=== PATIENT | female | born 1970 | race Asian ===

== ENCOUNTER 2016-11-23 23:01 | Emergency (ER) | payer OTHER ==
[~2016-11-23] VITALS: Ht 152.4 cm; Wt 98.0 kg
[~2016-11-23 23:01] MED LIST: ACETAZOLAMID250 MG OR; ALPR0.5T24 PO; AMOX500C85 PO; BENICAR20 MG PO; CLARITIN10 M1 PO; DUREZOL0.05 % OP; FLUC150T PO; FLUT0.05 NAS; FURO20TA67 PO; IBUP800T30 PO; INSU100I2 SC; INSU100P SC; INSUINJ47 SC; JANUVIA100 MG PO; LATANOPROST0.005 %; LORTAB1 TA1 PO; NEVANAC 0.1% OP; ONGLYZA5 MG PO; PREDNISONE5 M1 OR; PROM25TA52 PO; ROSU10TA PO; VIGAMOX0.5 % OP; Z-PAK PO; ZANTAC300 MG PO
[2016-11-23 23:49] LABS: PLATELET COUNT 305 K/uL (152-353)
[2016-11-23 23:52] LABS: POTASSIUM 3.7 mmol/L (3.6-5.2)
[2016-11-24 00:37] VITALS: BP 107/56; TEMP 97.8
== END 2016-11-24 00:39 | disposition home or self-care (01) ==
LOC: ED 23:01
DX: B34.9 Viral infection, unspecified (principal); E11.9 Type 2 diabetes mellitus without complications
CPT/HCPCS: 36415; 80053; 81000; 83036; 85027; 87081; 87804; 87880; 99283

== ENCOUNTER 2018-05-30 06:31 | Outpatient (CLI) | payer OTHER ==
[2018-05-30 07:43] LABS: PLATELET COUNT 267 K/uL (152-353)
[2018-05-30 08:02] LABS: POTASSIUM 4.1 mmol/L (3.6-5.2)
== END 2018-05-30 19:10 | disposition home or self-care (01) ==
LOC: LABW 06:31
PROVIDERS: Internal Medicine
DX: E11.9 Type 2 diabetes mellitus without complications (principal)
CPT/HCPCS: 36415; 80053; 80061; 81000; 82043; 82570; 83036; 84439; 84443; 85027

== ENCOUNTER 2018-07-02 11:27 | Outpatient (CLI) | payer OTHER | END 2018-07-02 23:31 | disposition home or self-care (01) | LOC: MAMMO 11:27 | DX: Z12.31 Encounter for screening mammogram for malignant neoplasm of breast (principal) ==

== ENCOUNTER 2018-08-02 16:39 | Emergency (ER) | payer OTHER ==
[~2018-08-02] VITALS: Ht 152.4 cm; Wt 101.2 kg
[2018-08-02 18:12] LABS: PLATELET COUNT 252 K/uL (152-353)
[2018-08-02 18:35] LABS: POTASSIUM 3.9 mmol/L (3.6-5.2); SODIUM 141 mmol/L (136-145)
[2018-08-02 19:55] VITALS: BP 123/76; TEMP 98.3
== END 2018-08-02 19:56 | disposition home or self-care (01) ==
LOC: ED 16:39
DX: R07.89 Other chest pain (principal); I45.19 Other right bundle-branch block; R06.02 Shortness of breath
CPT/HCPCS: 36415; 80053; 82550; 82553; 83880; 84484; 85027; 93005; 99283

== ENCOUNTER 2019-05-15 06:31 | Outpatient (CLI) | payer OTHER ==
[2019-05-15 06:55] LABS: PLATELET COUNT 300 K/uL (152-353)
== END 2019-05-15 23:01 | disposition home or self-care (01) ==
LOC: LABW 06:31
PROVIDERS: Physician Assistant
DX: E11.9 Type 2 diabetes mellitus without complications (principal); E78.00 Pure hypercholesterolemia, unspecified; I10 Essential (primary) hypertension
CPT/HCPCS: 36415; 80053; 80061; 82306; 83036; 84443; 85027

== ENCOUNTER 2019-05-20 08:18 | Outpatient (CLI) | payer OTHER | END 2019-05-20 22:24 | disposition home or self-care (01) | LOC: US 08:18 | DX: E11.9 Type 2 diabetes mellitus without complications (principal) ==

== ENCOUNTER 2019-07-05 01:04 | Emergency (ER) | payer OTHER ==
[~2019-07-05] VITALS: Ht 152.4 cm; Wt 96.2 kg
[2019-07-05 01:50] VITALS: BP 117/69; TEMP 98.3
== END 2019-07-05 01:55 | disposition home or self-care (01) ==
LOC: ED 01:04
DX: T63.461A Toxic effect of venom of wasps, accidental (unintentional), initial encounter (principal); M79.622 Pain in left upper arm; Y92.89 Other specified places as the place of occurrence of the external cause
CPT/HCPCS: 99282

== ENCOUNTER 2019-12-20 06:06 | Outpatient (CLI) | payer OTHER ==
[2019-12-20 06:42] LABS: PLATELET COUNT 253 K/uL (152-353)
[2019-12-20 07:00] LABS: POTASSIUM 3.9 mmol/L (3.6-5.2)
== END 2019-12-20 19:35 | disposition home or self-care (01) ==
LOC: LABW 06:06
PROVIDERS: Internal Medicine
DX: E11.9 Type 2 diabetes mellitus without complications (principal)
CPT/HCPCS: 36415; 80053; 80061; 81000; 83036; 84439; 84443; 85027

== ENCOUNTER 2020-08-03 04:51 | Outpatient (CLI) | payer OTHER ==
[2020-08-03 05:33] LABS: PLATELET COUNT 247 K/uL (152-353)
[2020-08-03 06:02] LABS: POTASSIUM 3.9 mmol/L (3.6-5.2)
== END 2020-08-04 00:18 | disposition home or self-care (01) ==
LOC: LAB 04:51
PROVIDERS: Internal Medicine
DX: Z00.00 Encounter for general adult medical examination without abnormal findings (principal); Z13.820 Encounter for screening for osteoporosis; Z79.899 Other long term (current) drug therapy
CPT/HCPCS: 36415; 80053; 80061; 81000; 82306; 84439; 84443; 85027

== ENCOUNTER 2020-08-28 08:42 | Outpatient (CLI) | payer OTHER | END 2020-08-28 21:53 | disposition home or self-care (01) | LOC: LABW 08:42 | DX: E11.9 Type 2 diabetes mellitus without complications (principal) | CPT/HCPCS: 36415; 83036 ==

== ENCOUNTER 2020-09-13 12:20 | Inpatient (IN) | payer OTHER ==
[2020-09-13] VITALS (14 sets, daily range): BP systolic 85–150; BP diastolic 40–67; TEMP 98.6–103.1; Ht 154.9 cm; Wt 104.9 kg
[~2020-09-13] VITALS: Ht 154.9 cm; Wt 104.9 kg
[2020-09-13 13:34] LABS: PLATELET COUNT 215 K/uL (152-353)
[2020-09-13 13:48] LABS: POTASSIUM 3.5 mmol/L (3.6-5.2)
[2020-09-13] MEDS ORDERED: RHOPRESSA 0.02% OPTH (18:16)
[2020-09-13] MEDS ORDERED: VYZULTA0.024 % OPTH (18:18)
[2020-09-13] MEDS ORDERED: DORZOLAMIDE HYD1 SOL OPTH (18:25)
[2020-09-14] VITALS (7 sets, daily range): BP systolic 94–141; BP diastolic 49–64; TEMP 98.5–102.1
[2020-09-14 04:46] LABS: PLATELET COUNT 189 K/uL (152-353)
[2020-09-15 03:57] VITALS: BP 90/49; TEMP 99.3
[2020-09-15 05:16] LABS: PLATELET COUNT 209 K/uL (152-353)
[2020-09-15 05:20] LABS: POTASSIUM 3.1 mmol/L (3.6-5.2)
[2020-09-15 08:00] VITALS: BP 123/67; TEMP 98.7
[2020-09-15 12:00] VITALS: BP 123/67; TEMP 98.7
[2020-09-15 16:00] VITALS: BP 131/73; TEMP 99.4
[2020-09-15 20:00] VITALS: BP 134/72; TEMP 98.5
[2020-09-16] VITALS: BP 138/82; TEMP 98.5
[2020-09-16 04:00] VITALS: BP 152/78; TEMP 98.5
[2020-09-16 05:03] LABS: POTASSIUM 4.2 mmol/L (3.6-5.2)
[2020-09-16 05:23] LABS: PLATELET COUNT 181 K/uL (152-353)
[2020-09-16 08:00] VITALS: BP 140/81; TEMP 98.5
[2020-09-16] MEDS ORDERED: CEFDINIR300 MG PO (10:25)
[2020-09-16 12:00] VITALS: BP 124/66; TEMP 98.1
[2020-09-16 16:00] VITALS: BP 158/85; TEMP 98.9
== END 2020-09-16 17:30 | disposition home or self-care (01) | DRG 872 ==
LOC: ED 12:20 → MED/SURG 15:00
PROVIDERS: Emergency Medicine Emergency Medical Services; ADMIT Internal Medicine Endocrinology, Diabetes & Metabolism; ATTEND Internal Medicine Endocrinology, Diabetes & Metabolism
DX: A41.89 Other specified sepsis (principal); N10 Acute pyelonephritis; E11.9 Type 2 diabetes mellitus without complications; I10 Essential (primary) hypertension; E78.49 Other hyperlipidemia; K21.9 Gastro-esophageal reflux disease without esophagitis; G89.4 Chronic pain syndrome; F41.8 Other specified anxiety disorders; B96.20 Unspecified Escherichia coli [E. coli] as the cause of diseases classified elsewhere
CPT/HCPCS: 36415; 80048; 80053; 81000; 82150; 82948; 82962; 83605; 83690; 85027; 87040; 87086; 87088; 93005; 96360; 96361; 96365; 96366; 96367; 96372; 96374; 96375; 99284; J0696; J1650; J1815; J1956; J2270; J2405

== ENCOUNTER 2020-12-15 09:57 | Outpatient (CLI) | payer OTHER ==
[~2020-12-15 09:57] MED LIST changes: +CEFDINIR300 MG PO; +DORZOLAMIDE HYD1 SOL OPTH; +RHOPRESSA 0.02% OPTH; +VYZULTA0.024 % OPTH
== END 2020-12-15 21:44 | disposition home or self-care (01) ==
LOC: RESP 09:57
PROVIDERS: ATTEND Nurse Practitioner
DX: R60.0 Localized edema (principal)

== ENCOUNTER 2021-03-02 10:59 | Day surgery (SDC) | payer OTHER ==
[2021-02-25 10:43] LABS: PLATELET COUNT 282 K/uL (152-353)
[2021-02-25 11:01] LABS: POTASSIUM 4.5 mmol/L (3.6-5.2)
[~2021-03-02] VITALS: Ht 33 cm; Wt 0.5 kg
== END 2021-03-02 14:15 | disposition home or self-care (01) ==
LOC: OR 10:59
PROVIDERS: ATTEND Internal Medicine Gastroenterology
PROC: 0DB68ZZ Excision of Stomach, Via Natural or Artificial Opening Endoscopic (ICD-10-PCS; principal; 2021-03-02)
PROC: 0DB88ZZ Excision of Small Intestine, Via Natural or Artificial Opening Endoscopic (ICD-10-PCS; 2021-03-02)
PROC: 0D738ZZ Dilation of Lower Esophagus, Via Natural or Artificial Opening Endoscopic (ICD-10-PCS; 2021-03-02)
DX: K21.00 Gastro-esophageal reflux disease with esophagitis, without bleeding (principal); K22.2 Esophageal obstruction; K29.50 Unspecified chronic gastritis without bleeding; R13.19 Other dysphagia; R10.11 Right upper quadrant pain; R11.0 Nausea; Z20.822 Contact with and (suspected) exposure to COVID-19
CPT/HCPCS: 80053; 85027; 87635; J2704; U0003

== ENCOUNTER 2022-04-08 19:40 | Emergency (ER) | payer OTHER ==
[~2022-04-08] VITALS: Ht 177.8 cm; Wt 99.3 kg
[2022-04-08 21:14] VITALS: BP 125/72; TEMP 98.3
== END 2022-04-08 21:14 | disposition home or self-care (01) ==
LOC: ED 19:40
DX: R21 Rash and other nonspecific skin eruption (principal); E11.9 Type 2 diabetes mellitus without complications; Z79.4 Long term (current) use of insulin
CPT/HCPCS: 99282

== ENCOUNTER 2022-07-12 23:17 | Observation (INO) | payer OTHER ==
[~2022-07-12] VITALS: Ht 157.5 cm; Wt 104.3 kg
[~2022-07-12 23:17] MED LIST changes: +FLONASE AL50 MCG/ACT NAS; -FLUT0.05 NAS
[2022-07-12 23:30] VITALS: BP 105/55
[2022-07-13] VITALS (8 sets, daily range): BP systolic 95–124; BP diastolic 45–75; TEMP 97.8–98.2; Ht 157.5 cm; Wt 104.3 kg
[2022-07-13 00:55] LABS: PLATELET COUNT 265 K/uL (152-353)
[2022-07-13 01:04] LABS: POTASSIUM 3.1 mmol/L (3.6-5.2)
[2022-07-13] MEDS ORDERED: XYZAL ALLERGY 245 MG PO (09:56)
[2022-07-13] MEDS ORDERED: LISI10TA11 PO (10:13)
[2022-07-13] MEDS ORDERED: FAMO20TA4 PO (10:14)
[2022-07-13] MEDS ORDERED: ALBUTEROL108 MCG/AC INH (10:15)
[2022-07-13] MEDS ORDERED: HYDROCHLOROT50 MG PO (10:16)
[2022-07-14] VITALS: BP 115/53; TEMP 98.5
[2022-07-14 00:02] VITALS: BP 115/53; TEMP 98.5
[2022-07-14 04:00] VITALS: BP 104/42; TEMP 98.6
[2022-07-14 08:00] VITALS: BP 111/62; TEMP 98.5
[2022-07-14 12:30] VITALS: BP 107/67; TEMP 98.6
== END 2022-07-14 12:55 | disposition home or self-care (01) ==
LOC: ED 23:17 → MED/SURG 07-13 02:45
PROVIDERS: ADMIT Emergency Medicine Emergency Medical Services; ATTEND Internal Medicine
DX: E11.65 Type 2 diabetes mellitus with hyperglycemia (principal); K76.0 Fatty (change of) liver, not elsewhere classified; I10 Essential (primary) hypertension; R10.10 Upper abdominal pain, unspecified; E78.49 Other hyperlipidemia; K21.9 Gastro-esophageal reflux disease without esophagitis; M15.8 Other polyosteoarthritis; H54.8 Legal blindness, as defined in USA
CPT/HCPCS: 80053; 81002; 82150; 82948; 83605; 83690; 85027; 87040; 87635; 96360; 96361; 96365; 96374; 96375; 96376; 99220; 99284; G0378; J1885; J2270; J2405; J3490; U0003

== ENCOUNTER 2022-08-21 08:01 | Outpatient (CLI) | payer OTHER ==
[~2022-08-21 08:01] MED LIST changes: +ALBUTEROL108 MCG/AC INH; +FAMO20TA4 PO; +HYDROCHLOROT50 MG PO; +LISI10TA11 PO; +XYZAL ALLERGY 245 MG PO
== END 2022-08-21 18:55 | disposition home or self-care (01) ==
LOC: NM 08:01
PROVIDERS: ATTEND Internal Medicine Gastroenterology
DX: R10.11 Right upper quadrant pain (principal)
CPT/HCPCS: A9537

== ENCOUNTER 2022-10-18 08:50 | Outpatient (CLI) | payer OTHER ==
[2022-10-18 09:16] LABS: PLATELET COUNT 253 K/uL (152-353)
[2022-10-18 09:39] LABS: POTASSIUM 3.9 mmol/L (3.6-5.2)
== END 2022-10-18 20:13 | disposition home or self-care (01) ==
LOC: LABW 08:50
PROVIDERS: ATTEND Internal Medicine Gastroenterology
DX: K59.09 Other constipation (principal)
CPT/HCPCS: 36415; 80053; 85027